=== PATIENT | female | born 1995 | race Caucasian/White ===

== ENCOUNTER 2016-09-13 09:24 | Emergency (ER) | payer BC ==
[2016-09-13 10:32] VITALS: BP 128/83
--- NOTE | 2016-09-13 10:51 | UC ---
Throat Pain/Nasal Bereket HPI - HPI Summary HPI Summary: Has continued and worsening sinus pain, right ear ache, cough, body aches---rx with amoxicillin without relief---has not used any decongestants - History of Current Complaint Chief Complaint: UCGeneralIllness Stated Complaint: COUGH Time Seen by Provider: 09/13/16 10:45 Hx Obtained From: Patient Hx Last Menstrual Period: 08/23/16 ?: No Onset/Duration: Gradual Onset, Lasting Days - >7 days, Worse Since - daily Severity: Moderate Cough: Nonproductive Associated Signs & Symptoms: Positive: Sinus Discomfort, Nasal Discharge - Allergies/Home Medications Allergies/Adverse Reactions: Allergies Allergy/AdvReac Type Severity Reaction Status Date / Time NSAIDs Allergy Severe LIP Verified 11/16/15 18:56 SWELLING Home Medications: Home Medications metFORMIN* [Glucophage 500 MG TAB *] 09/13/16 [History] PMH/Surg Hx/FS Hx/Imm Hx Previously Healthy: No - pcos Endocrine History Of: Denies: Diabetes, Thyroid Disease Cardiovascular History Of: Denies: Cardiac Disorders, Hypertension Respiratory History Of: Reports: Asthma - albuterol mdi when needed Denies: COPD GI/ History Of: Denies: Ulcer - Surgical History Surgical History: None Surgery Procedure, Year, and Place: T&A - Family History Known Family History: Positive: None - Social History Occupation: Employed Full-time Lives: With Family Alcohol Use: None Substance Use Type: None Smoking Status (MU): Light Every Day Tobacco Smoker Type: Cigarettes Amount Used/How Often: <1/2 PPD Length of Time of Smoking/Using Tobacco: 4 years Have You Smoked in the Last Year: Yes Household Exposure Type: Cigarettes Review of Systems Constitutional: Negative Skin: Negative Eyes: Negative ENT: Ear Ache, Nasal Discharge Respiratory: Cough Cardiovascular: Negative Gastrointestinal: Negative Genitourinary: Negative Motor: Negative Neurovascular: Negative Musculoskeletal: Arthralgia, Myalgia Neurological: Negative Psychological: Negative All Other Systems Reviewed And Are Negative: Yes Physical Exam Triage Information Reviewed: Yes Appearance: Well-Appearing, No Pain Distress, Well-Nourished Vital Signs: Initial Vital Signs Temp 98.0 F 09/13/16 10:27 Pulse 108 09/13/16 10:27 Resp 18 09/13/16 10:27 BP 128/83 09/13/16 10:27 Pulse Ox 98 09/13/16 10:27 Vital Signs Reviewed: Yes Eye Exam: Normal Eyes: Positive: Conjunctiva Inflamed ENT Exam: Normal ENT: Positive: Normal ENT inspection, Hearing grossly normal, Pharynx normal, Nasal congestion, Nasal drainage, TMs normal. Negative: Tonsillar swelling, Tonsillar exudate, Trismus, Muffled/hoarse voice Dental Exam: Normal Neck exam: Normal Neck: Positive: Supple, Nontender, No Lymphadenopathy Respiratory Exam: Normal Respiratory: Positive: Chest non-tender, Lungs clear, Normal breath sounds, No respiratory distress, No accessory muscle use Cardiovascular Exam: Other Cardiovascular: Positive: No Murmur, Pulses Normal, Brisk Capillary Refill, Tachycardia Musculoskeletal Exam: Normal Musculoskeletal: Positive: Strength Intact, ROM Intact, No Edema Neurological Exam: Normal Neurological: Positive: Alert, Muscle Tone Normal Psychological Exam: Normal Skin Exam: Normal Throat Pain/Nasal Course/Dx - Course Assessment/Plan: Augmentin, flonase and zyrtec -d increase fluids, follow with pcp - Differential Dx/Diagnosis Differential Diagnosis/HQI/PQRI: Otitis Media, Pharyngitis, Sinusitis, URI Provider Diagnoses: Acute rhinosinusitis Discharge - Discharge Plan Condition: Stable Disposition: HOME Prescriptions: Amoxicillin/Clavulanate TAB* [Augmentin TAB 875*] 875 mg PO BID #20 tab Cetirizine-Pseudoephedrine [Zyrtec-D Allergy/Congesti] 1 tab PO BID PRN #30 tab PRN Reason: nasal congestion Fluticasone NASAL SPRAY 50MCG* [Flonase NASAL SPRAY 50MCG*] 2 spray BOTH NARES DAILY #1 btl Patient Education Materials: Rhinosinusitis (ED), Cold Symptoms (ED) Forms: *Work Release Referrals: [facility] [place] [facility]FERR[facility] [Outside] - If Needed
== END 2016-09-13 11:07 | disposition home or self-care (01) ==
LOC: UCEAST 09:24
DX: J01.90 Acute sinusitis, unspecified (principal); F17.210 Nicotine dependence, cigarettes, uncomplicated; J45.909 Unspecified asthma, uncomplicated; Z88.6 Allergy status to analgesic agent
CPT/HCPCS: 99212; G0463

== ENCOUNTER → 2016-10-02 10:48 | Emergency (ER) | payer SELFPAY ==
[~2016-10-02 10:48] MED LIST: Acetaminophen TAB* 325 MG PO ONE
[2016-10-02 10:57] VITALS: BP 149/92
[2016-10-02 11:39] LABS: Manual Entry Verification MR; UR Preg Internal Control QC Line Present
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
== END | disposition home or self-care (01) ==
LOC: ED 10:48
DX: M79.1 Myalgia (principal); F17.210 Nicotine dependence, cigarettes, uncomplicated; M54.2 Cervicalgia
CPT/HCPCS: 72125; 81025; 99282; A9270-GY

== ENCOUNTER → 2016-10-04 16:42 | Emergency (ER) | payer SELFPAY ==
[~2016-10-04 16:42] MED LIST changes: -Acetaminophen TAB* 325 MG PO ONE; +Dexamethasone IV* 4 MG/ML 1 ML (4 MG) IM ONE; +Lidocaine PATCH 5%* 1 PATCH ONE; +Lidocaine PATCH 5%* 1 PATCH TRANSDERM SCH; +Lidocaine Patch REMOVE* 1 NOTE MISC SCH
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
[2016-10-04 19:52] VITALS: BP 123/90
== END | disposition home or self-care (01) ==
LOC: ED 16:42
DX: M54.2 Cervicalgia (principal); R20.0 Anesthesia of skin; F17.210 Nicotine dependence, cigarettes, uncomplicated; J45.909 Unspecified asthma, uncomplicated
CPT/HCPCS: 96372; 99282; A9270-GY; J1100

== ENCOUNTER 2016-11-27 21:39 | Emergency (ER) | payer BC, OTHER ==
[2016-11-27] MEDS ORDERED: Aspirin Low Dose CHEW TAB* 81 MG PO ONE (23:51)
[2016-11-28 00:59] LABS: Hematocrit 40 % (35-47); Hemoglobin 13.5 g/dl (12.0-16.0); Mean Corpuscular HGB Conc 34 g/dl (31-36); Mean Corpuscular Hemoglobin 32 pg (27-31); Mean Corpuscular Volume 93 fL (80-97); Mean Platelet Volume 8 um3 (7.4-10.4); Red Blood Count 4.28 10^6/ul (4.0-5.4); Red Cell Distribution Width 13 % (10.5-15); White Blood Count 13.7 10^3/ul (3.5-10.8)
[2016-11-28 01:29] LABS: BUN/Creatinine Ratio 15.3 (8-20); Calcium 9.5 mg/dL (8.6-10.3); EGFR African American 165.5 (>60); EGFR Non-African American 128.7 (>60); Globulin 2.9 g/dL (2-4); Potassium 3.6 mmol/L (3.5-5.0); Total Bilirubin 0.3 mg/dL (0.2-1.0); Total Protein 6.9 g/dL (6.4-8.9)
[2016-11-28] MEDS ORDERED: Pantoprazole TAB (NF) 40 MG TAB PO ONE (01:59)
[2016-11-28] MEDS ORDERED: Omeprazole CAP* 20 MG ONE (02:07)
--- NOTE | 2016-11-28 04:21 | ED ---
Real Howard Rebecca, scribed for Charles Renteria on 11/27/16 at 2321 . HPI Chest Pain - HPI Summary HPI Summary: Pt is a 20 y/o F who presents to ED c/o CP for 2 days. Pain is in the midsternal region without radiation and is characterized as pressure, like "someone is pushing." Sx aggravated by movement, alleviated by nothing. Denies SOB. Is not on oral contraceptives. Takes Metformin to treat PCOS and 1 week ago her dose was doubled from 500 mg to 1000 mg. SHx current smoker. - History of Current Complaint Chief Complaint: EDChestPainROMI Time Seen by Provider: 11/27/16 23:14 Hx Obtained From: Patient Onset/Duration: Started Days Ago - 2 days ago, Still Present Current Severity: None Pain Intensity: 0 Pain Scale Used: 0-10 Numeric Chest Pain Location: Mid Sternal Chest Pain Radiates: No Character: Pressure/Squeezing Aggravating Factor(s): Movement Alleviating Factor(s): Nothing Associated Signs and Symptoms: Positive: Negative. Negative: Shortness of Breath - Allergy/Home Medications Allergies/Adverse Reactions: Allergies Allergy/AdvReac Type Severity Reaction Status Date / Time NSAIDs Allergy Severe LIP Verified 11/16/15 18:56 SWELLING PMH/Surg Hx/FS Hx/Imm Hx Endocrine/Hematology History: Denies: Hx Diabetes, Hx Thyroid Disease Cardiovascular History: Denies: Hx Hypertension Respiratory History: Reports: Hx Asthma - albuterol mdi when needed Denies: Hx Chronic Obstructive Pulmonary Disease (COPD) GI History: Denies: Hx Ulcer History: Reports: Other Problems/Disorders - PCOS - Surgical History Surgery Procedure, Year, and Place: T&A Infectious Disease History: Denies: Hx Clostridium Difficile, Hx Hepatitis, Hx Human Immunodeficiency Virus (HIV), Hx of Known/Suspected MRSA, Hx Shingles, Hx Tuberculosis, Hx Known/ Suspected VRE, Hx Known/Suspected VRSA, History Other Infectious Disease, Traveled Outside the [place] in Last 30 Days - Family History Known Family History: Positive: Diabetes, Other - CA - Social History Alcohol Use: None Substance Use Type: Reports: None Smoking Status (MU): Light Every Day Tobacco Smoker Type: Cigarettes Amount Used/How Often: <1/2 PPD Length of Time of Smoking/Using Tobacco: 4 years Have You Smoked in the Last Year: Yes Review of Systems Positive: Chest Pain Negative: Shortness Of Breath All Other Systems Reviewed And Are Negative: Yes Physical Exam Triage Information Reviewed: Yes Vital Signs On Initial Exam: Initial Vitals Temp Pulse Resp BP Pulse Ox 98 F 91 16 136/76 99 11/27/16 21:43 11/27/16 21:43 11/27/16 21:43 11/27/16 21:43 11/27/16 21:43 Vital Signs Reviewed: Yes Appearance: Positive: Well-Appearing, No Pain Distress Skin: Positive: Warm, Skin Color Reflects Adequate Perfusion, Dry Head/Face: Positive: Normal Head/Face Inspection Eyes: Positive: EOMI, WHITLEY ENT: Positive: Normal ENT inspection Neck: Positive: Supple, Nontender Respiratory/Lung Sounds: Positive: Clear to Auscultation, Breath Sounds Present Cardiovascular: Positive: RRR, Pulses are Symmetrical in both Upper and Lower Extremities Abdomen Description: Positive: Nontender, Soft Bowel Sounds: Positive: Present Musculoskeletal: Positive: Normal, Strength/ROM Intact Neurological: Positive: Normal, Sensory/Motor Intact, Alert, Oriented to Person Place, Time Diagnostics - Vital Signs Vital Signs Temp Pulse Resp BP Pulse Ox 11/27/16 21:43 98 F 91 16 136/76 99 - Laboratory Result Diagrams: 11/28/16 00:50 11/28/16 00:50 Lab Statement: Any lab studies that have been ordered have been reviewed, and results considered in the medical decision making process. - Radiology CXR Xray Interpretation: No Acute Changes Radiology Interpretation Completed By: ED Physician - Ultrasound No standard instances Ultrasound Interpretation: No Acute Changes - The gallbladder is not well distended. No definite stones or sludge visualized. The gallbladder wall is normal in thickness measuring 2 mm. No pericholecystic fluid. Negative sonographic Pérez;s sign repoted. The common bile duct is within normla limits measuring 2.4 mm. The liver, right kidney and visualized portions of the abdominal aorta and IVC are unremarkable. Visualized portions of the pancreas appear grossly normal with portions obscured by overlying bowel gas. Ultrasound Interpretation Completed By: Radiologist - EKG 0114 Cardiac Rate: NL - 91 bpm EKG Rhythm: Sinus Rhythm EKG Interpretation: No acute changes Re-Evaluation - Re-Evaluation First Eval Re-Evaluation Time: 02:32 Change: Unchanged Comment: Explained that labs are not back yet. She expressed that she would like to leave. Chest Pain Course/Dx - Course Assessment/Plan: Pt is a 20 y/o F who presents to ED c/o midsternal CP characterized as pressure for 2 days. Sx aggravated by movement. Denies SOB. Is not on oral contraceptives. Takes Metformin to treat PCOS and 1 week ago her dose was doubled from 500 mg to 1000 mg. SHx current smoker. CXR, Abd US and EKG reveal no acute findings. Troponin of 0.00, D-Dimer<200, lipase of 28. Pt will be D/C to home with Dx of abdominal pain, nonspecific. She understands and agrees. Patient medications reviewed this visit. - Diagnoses Provider Diagnoses: Pain, abdominal, nonspecific Discharge - Discharge Plan Condition: Stable Disposition: HOME Patient Education Materials: Abdominal Pain (ED) Referrals: Jori France MD [Primary Care Provider] - 3 Days The documentation as recorded by the Real rivas Rebecca accurately reflects the service I personally performed and the decisions made by , Charles Renteria.
[2016-11-28 06:02] VITALS: BP 120/69
--- NOTE | 2016-11-28 08:04 | RAD ---
INDICATION: Chest pain COMPARISON: None TECHNIQUE: PA and lateral dual-energy views were obtained. FINDINGS: Bones/Soft Tissues: There are no acute bony findings. There is a minor scoliosis Cardiomediastinal: The cardiomediastinal silhouette is normal. Lungs: There are no infiltrates. Pleura: There are no pleural effusions. Other: None IMPRESSION: No active disease.
--- NOTE | 2016-11-28 08:33 | RAD ---
INDICATION: Cholecystitis. Right upper quadrant pain. COMPARISON: None TECHNIQUE: Longitudinal and transverse scans of the right upper quadrant were obtained. Doppler interrogation of the hepatic and portal venous system was performed. FINDINGS: Liver: The liver is normal in size and echogenicity. There are no focal masses. The liver measures 15.8 cm in cephalocaudal dimension. Vessels: There is normal hepatic and portal venous flow. Bile ducts: There is no evidence of intrahepatic or extrahepatic ductal dilatation. The common duct measures 0.2 cm. Gallbladder: The gallbladder is partially contracted. There is no evidence of cholelithiasis, thickening of the gallbladder wall, or pericholecystic fluid. Pancreas: The visualized pancreas is very limited due to bowel gas. Right kidney: The right kidney is normal in size and echogenicity. There are no masses or calculi. There is no evidence of hydronephrosis. The right kidney measures 11.2 x 4.1 x 5.3 cm. IVC and aorta: The aorta and superior vena cava appear normal. Fluid: There is no ascites. Other: None. IMPRESSION: PARTIALLY CONTRACTED GALLBLADDER. NO EVIDENCE OF CHOLELITHIASIS. NONVISUALIZATION OF THE PANCREAS.
== END 2016-11-28 02:40 | disposition home or self-care (01) ==
LOC: ED 21:39
DX: R07.9 Chest pain, unspecified (principal); R10.9 Unspecified abdominal pain; F17.210 Nicotine dependence, cigarettes, uncomplicated
CPT/HCPCS: 36415; 71020; 76705; 80053; 83690; 84484; 85025; 85379; 85610; 93005; 99282; A9270-GY

== ENCOUNTER 2017-10-01 20:13 | Emergency (ER) | payer BC, MEDICAID ==
--- NOTE | 2017-10-01 21:14 | RAD ---
INDICATION: 1 month RIGHT calf pain. 36 weeks . COMPARISON: No relevant prior exams available on the [facility] PACS for comparison. TECHNIQUE: Ruiz scale, color Doppler, and spectral analysis of the deep veins of the RIGHT lower extremity. Vessel compression, phasicity, and augmentation assessed. REPORT: The RIGHT common femoral, great saphenous, profunda femoral, partially duplicated femoral, popliteal, peroneal, and posterior tibial veins are patent. Patency of the LEFT common femoral vein documented. IMPRESSION: No evidence for RIGHT lower extremity deep venous thrombosis.
--- NOTE | 2017-10-01 21:25 | ED ---
Lower Extremity - HPI Summary HPI Summary: 21 female presents to ER with complaints of right calf pain that has been ongoing for the past 2 weeks, worsening over the past 2 days. Patient is 36 weeks concern for DVT. Denies any redness or obvious swelling. No shortness of breath or chest pain. No other complaints or concerns. Denies history of blood clot. Does not use cigarettes, no hormone use, no: Bedrest, no recent travel, no recent trauma or injury or recent surgery. No past medical history. Has not had any medication. - History of Current Complaint Chief Complaint: EDExtremityLower Stated Complaint: LEG PAIN Hx Obtained From: Patient Hx Last Menstrual Period: 08/23/16 Mechanism Of Injury: Other - None Onset/Duration: Still Present Severity Initially: Mild Severity Currently: Mild Pain Intensity: 3 Pain Scale Used: 0-10 Numeric Timing: Constant - Worse at times Location: Is Discrete @ - Right posterior mid calf Character Of Pain: Dull, Aching Associated Signs And Symptoms: Positive: Negative Aggravating Factor(s): Ambulation, Movement Alleviating Factor(s): Rest Able to Bear Weight: Yes - Allergies/Home Medications Allergies/Adverse Reactions: Allergies Allergy/AdvReac Type Severity Reaction Status Date / Time NSAIDS (Non-Steroidal Allergy Swelling Verified 07/15/17 12:02 Anti-Inflamma Of Face,Lips,& Throat Home Medications: Home Medications Pnv,Calcium 72/Iron/Folic Acid [Preplus Ca-Fe 27 mg-FA 1 mg Tb] 1 tab PO DAILY 10/01/17 [History Confirmed 10/01/17] PMH/Surg Hx/FS Hx/Imm Hx Endocrine/Hematology History: Denies: Hx Diabetes, Hx Thyroid Disease Cardiovascular History: Denies: Hx Hypertension Respiratory History: Reports: Hx Asthma - albuterol mdi when needed Denies: Hx Chronic Obstructive Pulmonary Disease (COPD) GI History: Denies: Hx Ulcer History: Reports: Other Problems/Disorders - PCOS - Surgical History Surgery Procedure, Year, and Place: T&A - Immunization History Immunizations Up to Date: Yes Infectious Disease History: No Infectious Disease History: Denies: Hx Clostridium Difficile, Hx Hepatitis, Hx Human Immunodeficiency Virus (HIV), Hx of Known/Suspected MRSA, Hx Shingles, Hx Tuberculosis, Hx Known/ Suspected VRE, Hx Known/Suspected VRSA, History Other Infectious Disease, Traveled Outside the [place] in Last 30 Days - Family History Known Family History: Positive: None, Diabetes, Other - CA - Social History Alcohol Use: None Substance Use Type: Reports: None Hx Tobacco Use: Yes Smoking Status (MU): Never Smoked Tobacco Type: Cigarettes Amount Used/How Often: <1/2 PPD Length of Time of Smoking/Using Tobacco: 4 years Have You Smoked in the Last Year: Yes Review of Systems Constitutional: Negative Cardiovascular: Negative Respiratory: Negative Positive: Arthralgia, Myalgia Skin: Negative Neurological: Negative All Other Systems Reviewed And Are Negative: Yes Physical Exam Triage Information Reviewed: Yes Vital Signs On Initial Exam: Initial Vitals Temp Pulse Resp BP Pulse Ox 98.4 F 98 16 177/99 99 10/01/17 20:16 10/01/17 20:16 10/01/17 20:16 10/01/17 20:16 10/01/17 20:16 BP improved 140/89 Vital Signs Reviewed: Yes Appearance: Positive: Well-Appearing, No Pain Distress, Well-Nourished Skin: Positive: Warm, Skin Color Reflects Adequate Perfusion, Dry. Negative: Cold, Numb, Cyanosis @, Pale, Erythema @ Head/Face: Positive: Normal Head/Face Inspection Eyes: Positive: WHITLEY ENT: Positive: Hearing grossly normal Neck: Positive: Supple, Nontender, No Lymphadenopathy Respiratory/Lung Sounds: Positive: Clear to Auscultation, Breath Sounds Present. Negative: Rales, Rhonchi, Wheezes Cardiovascular: Positive: Normal, RRR, Pulses are Symmetrical in both Upper and Lower Extremities. Negative: Murmur, Rub Abdomen Description: Positive: Nontender, Soft Bowel Sounds: Positive: Present Musculoskeletal: Positive: Normal, Strength/ROM Intact, Other - No erythema or swelling. Negative: Limited @, Interruption @, Abnormal @, Pain @, Therese Sign Left, Therese Sign Right, Edema Left, Edema Right Neurological: Positive: Normal, Sensory/Motor Intact, Alert, Oriented to Person Place, Time, CN Intact II-III, Reflexes Intact, NV Bundle Intact Distally, Normal Gait Diagnostics - Vital Signs Vital Signs Temp Pulse Resp BP Pulse Ox 10/01/17 21:02 101 13 145/89 97 10/01/17 21:00 105 19 97 10/01/17 20:58 110 13 168/101 98 10/01/17 20:32 114 163/115 99 10/01/17 20:16 98.4 F 98 16 177/99 99 - Laboratory Lab Statement: Any lab studies that have been ordered have been reviewed, and results considered in the medical decision making process. - Ultrasound No standard instances Ultrasound Interpretation: No Acute Changes - No evidence for RIGHT lower extremity deep venous thrombosis. Ultrasound Interpretation Completed By: Radiologist Lower Extremity Course/Dx - Course Course Of Treatment: Normal physical exam and vitals. Ultrasound obtained and negative. Appears to be a muscular strain probably due to excessive weight gain from . Rest, heat compress, Tylenol and massage. Aware worsening signs and symptoms watch out for. No risk factors to concern for other etiology at this time. Follow-up with PCP. Patient's elevated pressure on arrival due to whitecoat hypertension. Patient has this during a revisit. Monitor his pressures at home and are normal. Evaluated for preeclampsia 3 times this week, with negative findings. Therefore not of concern today. Her pressure did improve throughout visit and at discharge - Diagnoses Differential Diagnosis/HQI/PQRI: Positive: Strain, Other - Right calf pain Provider Diagnoses: Right calf pain, Muscle strain Discharge - Sign-Out/Discharge Documenting (check all that apply): Discharge/Admit/Transfer - Discharge Plan Condition: Good Disposition: HOME Patient Education Materials: Muscle Strain (ED) Referrals: Jori France MD [Primary Care Provider] - Additional Instructions: rest, apply heating pad, icey/hot, tylenol gently stretch any new or worsening symptoms (SOB, trouble breathing, chest, redness, swelling , increased pain) please return to ED follow up with PCP. - Billing Disposition and Condition Condition: GOOD Disposition: HOME
[2017-10-01 21:58] VITALS: BP 140/90
== END 2017-10-01 22:06 | disposition home or self-care (01) ==
LOC: ED 20:13
DX: O26.893 Other specified pregnancy related conditions, third trimester (principal); M79.661 Pain in right lower leg; S86.811A Strain of other muscle(s) and tendon(s) at lower leg level, right leg, initial encounter; X58.XXXA Exposure to other specified factors, initial encounter; Y92.9 Unspecified place or not applicable; O99.333 Smoking (tobacco) complicating pregnancy, third trimester; F17.210 Nicotine dependence, cigarettes, uncomplicated; Z88.6 Allergy status to analgesic agent
CPT/HCPCS: 99283

== ENCOUNTER 2017-10-11 17:54 | Inpatient (IN) | payer BC, MEDICAID ==
[2017-10-11] MEDS ORDERED: Nalbuphine* 20 MG/ML 1 ML VIAL IV ONE (19:01)
[2017-10-11] MEDS ORDERED: Dinoprostone* 10 MG VAG.SUPP VAGINAL ONE (19:01)
[2017-10-11] MEDS ORDERED: Promethazine INJ(RESTRICTED)* 25 MG/ML 1 ML VIAL IV ONE (19:01)
--- NOTE | 2017-10-11 19:10 | HP ---
General Information - General Information Maternal Age: 21 Grav: 1 Para: 0 SAB: 0 IEA: 0 Estimated Due Date: 10/26/17 Determined By: LMP Gestational Age in Weeks and Days: 37 Weeks and 6 Days Maternal Blood Type and Rh: B Positive - Results this Serology/RPR Result: Non-Reactive Rubella Result: Immune HBsAg Result: Negative HIV Result: Negative GBS Culture Result: Negative Past Medical History Delivery History: See Records Pertinent Past Medical History: Non-Contributory Pertinent Past Surgical History: None Pertinent Family History: See Records Family History Comment: HTN, Stroke, CVD, blood clots, PCOS - Antepartal Records Antepartal Records: Reviewed, Complicated by: - mild preeclampsia, low lying placenta (resolved 06/20/2017), bilateral choroid plexus cysts (resolved ), BMI 32.5 Review of Systems Constitutional: Comfortable CV Complaint: No Respiratory: Shortness of Breath: No Gastrointestinal: No Nausea/Vomiting Genitourinary: No Dysuria, No Bleeding, No Leaking Fluid Musculoskeletal: Contractions - irregular Neurological: No Visual Changes - mild right sided headache Movement: Normal Exam Allergies/Adverse Reactions: Allergies NSAIDS (Non-Steroidal Anti-Inflamma Allergy (Verified 10/11/17 18:22) Swelling Of Face,Lips,& Throat T:98.3, P:113, R:18, BP: 159/94, O2:100 - Measurements Height: 5 ft 4 in Weight: 191 lb Weight in lbs: 191 Body Mass Index (BMI): 32.8 Pre- Weight: 180 lb Weight Gained This : 11 lbs and 0 ozs - Exam Abdomen: No Upper Quadrant Pain Breast: Breast Exam Deferred CVA: No CVA Tenderness Extremities: No Edema Heart: Normal Rhythm/Heart Sounds HEENT: No Significant Findings Lungs: Clear Bilaterally Rectal: Rectal Exam Deferred Thyroid: No Thyromegaly - Abdominal Exam Abdomen Exam: Non-Tender - Ultrasound/Biophysical Profile Ultrasound Status: Not Done Targeted Exam Findings Cervical Exam: Fingertip Effacement: Thick Station: -2 Presenting Part: Vertex Membrane Status: Intact Bleeding/Discharge: None EFM Findings - External Monitor Findings Baseline Heart Rate: 135 External Monitor Findings: Accelerations Present, No Pattern of Variable or Late Decelerations, Variability Moderate, Baseline Stable Contractions: Irregular, Mild Assessment/Plan - Reason for Visit Reason for Visit: mild preeclampsia/ induction of labor - Obstetrical Risk Factors Obstetrical Risk Factors: Obesity, Proteinuria, PreEclampsia - Plan Plan: Induction, Cervical Ripening Plan Comment: Dr. Sotelo aware of plan and agrees with plan of care - Date/Time of Admission Date of Admission: 10/11/17 Time of Admission: 18:00
[2017-10-11 20:35] LABS: ABS Basophils 0 10^3/ul (0-0.2); ABS Eosinophils 0.2 10^3/ul (0-0.6); ABS Lymphocytes 3.3 10^3/ul (1.0-4.8); ABS Monocytes 1.4 10^3/ul (0-0.8); ABS Neutrophils 11.5 10^3/ul (1.5-7.7); ABS Nucleated RBC 0 10^3/ul; Hematocrit 34 % (35-47); Hemoglobin 11.8 g/dl (12.0-16.0); Lymphocyte % 19.9 % (25-47); Mean Corpuscular HGB Conc 35 g/dl (31-36); Mean Corpuscular Hemoglobin 33 pg (27-31); Mean Corpuscular Volume 93 fL (80-97); Mean Platelet Volume 8.7 um3 (7.4-10.4); Nucleated Red Blood Cells % 0.1; Platelet Count 344 10^3/ul (150-450); Red Blood Count 3.62 10^6/ul (4.0-5.4); Red Cell Distribution Width 13 % (10.5-15); White Blood Count 16.4 10^3/ul (3.5-10.8)
[2017-10-11 20:56] LABS: EGFR Non-African American 178.8 (>60)
[2017-10-11 22:05] LABS: Urine Appearance Cloudy; Urine Blood Negative (Negative); Urine Color Yellow; Urine Ketones Trace (Negative); Urine Protein 1+(30 mg/dL) (Negative); Urine Specific Gravity 1.032 (1.010-1.030); Urine Urobilinogen Negative (Negative)
[2017-10-12] MEDS ORDERED: Misoprostol TAB* 100 MCG PO ONE (10:40)
[2017-10-12] MEDS ORDERED: Misoprostol TAB* 100 MCG ONE (10:55)
--- NOTE | 2017-10-12 10:56 | PN ---
Progress Note - Progress Note Date of Service: 10/12/17 SOAP: Subjective: [Pt reports cramping overnight but slept and rested well with Nubain and phenergan. Pt denies regular contractions, reports +FM, denies LOF, or vaginal bleeding. Pt c/o swelling of legs this morning. No other concerns. Reviewed plan and options and pt consents to continue with Misoprostol for further cervical ripening.] Objective: [ZULMA: 134/90, P:87, R:16, T:98.1 cervix: FT/60/-2 posterior FHT: Baseline 140bpm, mod variability, +accels, -decels] Assessment: [21 y.o. 38weeks EGA, mild preeclampsia, induction of labor] Plan: [1) Oral misoprostol 2) Continuous monitoring 3) Encourage position changes and ambulation 4) Monitor intake and output 5) Reviewed risks versus benefits and questions answered to patient satisfaction 6) Reevaluation PRN]
--- NOTE | 2017-10-12 18:24 | PN ---
Progress Note - Progress Note Date of Service: 10/12/17 SOAP: Subjective: [Pt reports mild contractions and continued cramping. Pt denies LOF, reports + bloody show, -vaginal bleeding, +FM. Reviewed options and pt elects to continue with Coombs balloon for continued cervical ripening.] Objective: [ FHT: 130 bpm, moderate variability, + accels, -decels cervix 1/60/-2 midline] Assessment: [21 y.o. , mild preeclampsia, Induction of labor] Plan: [1) Reviewed mgmt options and R/B 2) Coombs balloon overnight for cervical ripening 3) Continuous monitoring, monitor intake and output, therapeutic rest overnight 4) Reevaluate PRN 5) Dr. Sotelo aware of plan and agrees 6) Questions answered to pt satisfaction]
[2017-10-12] MEDS ORDERED: Nalbuphine* 20 MG/ML 1 ML VIAL IV PRN (22:19)
[2017-10-12] MEDS ORDERED: Promethazine INJ(RESTRICTED)* 25 MG/ML 1 ML VIAL IV PRN (22:19)
[2017-10-12] MEDS ORDERED: Docusate CAP* 100 MG PO PRN (22:40)
--- NOTE | 2017-10-13 12:43 | PN ---
Progress Note - Progress Note Date of Service: 18 - 9AM SOAP: Subjective: [Pt reports cramping and pressure overnight. Pt states she rested well, reports + bloody show, denies LOF, + FM. Reviewed option and pt elects to continue with AROM and then pitocin if ctx do not start. Pt denies CARR, vision changes, epigastric pain or facial edema] Objective: [BP: 153/94, P:101, T 98.3, Intake 2230ml, Output 1825ml Cervix:360/-1 AROM particulate meconium NST: baseline: 135bpm, + accels, -decels, moderate variability] Assessment: [21 y.o. at 38w1d EGA, mild preeclampsia, IOL] Plan: [1) Ambulation 2) Reviewed induction risks versus benefits 3) Pitocin augmentation if ctx fail to start after a few hours. 4) Questions answered to pt satisfaction 5) Reviewed with Dr. Maya who agrees with plan]
[2017-10-13] MEDS ORDERED: Lidocaine 1% MPF* 2 ML VIAL ONE (12:44)
[2017-10-13] MEDS ORDERED: Oxytocin in LR* 20 UNITS/1,000 ML BAG IVPB ONE (12:47)
--- NOTE | 2017-10-13 12:50 | PN ---
Progress Note - Progress Note Date of Service: 10/13/17 - 12:45PM SOAP: Subjective: [Pt reports cramps and pressure but no contractions. Pt agrees to start Pitocin and requests pain mgmt as needed but not yet.] Objective: [BP: 146/90 p:101, T:98.3] FHT: baseline 135, mod variability, +accels, -decels irregular ctx on monitor Assessment: [21 yo 38w1d EGA mild preeclampsia, IOL] Plan: [1) Pitocin 2) Encourage ambulation 3) Pain mgmt PRN 4) reevaluate PRN 5) Continuous monitoring 6) Dr boyle aware]
[2017-10-13] MEDS ORDERED: Oxytocin in LR* 20 UNITS/1,000 ML BAG IVPB SCH (15:00)
[2017-10-13] MEDS ORDERED: OBEPIDURAL* 250 ML EPIDURAL ONE (16:32)
[2017-10-13] MEDS ORDERED: EPHEDrine (Pressors)* 50 MG/ML VIAL IV PUSH PRN ×2 (18:23)
[2017-10-13] MEDS ORDERED: Phenylephrine IV* 40 MCG/ML 10 ML SYRINGE IV PUSH PRN ×2 (18:23)
[2017-10-13] MEDS ORDERED: Sodium Citrate/Citric Acid* 15 ML UDC PO PRN (18:23)
[2017-10-13] MEDS ORDERED: Famotidine TAB* 20 MG PO PRN (18:23)
[2017-10-13] MEDS ORDERED: OBEPIDURAL* 250 ML EPIDURAL SCH (19:00)
[2017-10-14] MEDS ORDERED: Witch Hazel PAD* JAR TOPICAL PRN (02:17)
[2017-10-14] MEDS ORDERED: Glycerin ADULT SUPP PR PRN (02:17)
[2017-10-14] MEDS ORDERED: Dibucaine 1% 28.35 GM TUBE PR PRN (02:17)
[2017-10-14] MEDS ORDERED: Oxytocin in LR* 20 UNITS/1,000 ML BAG IVPB SCH (03:00)
[2017-10-14] MEDS ORDERED: Simethicone TAB* 80 MG TAB.CHEW PO SCH (08:30)
[2017-10-14] MEDS: Docusate CAP* 100 MG PO SCH ×3 (09:35→20:46)
[2017-10-14] MEDS: Acetaminophen TAB* 325 MG PO PRN ×3 (09:35→17:42)
[2017-10-14] MEDS ORDERED: Labetalol TAB* 100 MG ONE (20:24)
[2017-10-14] MEDS: Labetalol TAB* 100 MG PO SCH (20:46)
[2017-10-14 20:52] LABS: ABS Basophils 0.2 10^3/ul (0-0.2); ABS Eosinophils 0.3 10^3/ul (0-0.6); ABS Lymphocytes 3.7 10^3/ul (1.0-4.8); ABS Monocytes 1.9 10^3/ul (0-0.8); ABS Neutrophils 13.8 10^3/ul (1.5-7.7); ABS Nucleated RBC 0 10^3/ul; Eosinophil % 1.4 % (0-6); Hematocrit 29 % (35-47); Hemoglobin 10.2 g/dl (12.0-16.0); Lymphocyte % 18.5 % (25-47); Mean Corpuscular HGB Conc 35 g/dl (31-36); Mean Corpuscular Hemoglobin 33 pg (27-31); Mean Corpuscular Volume 94 fL (80-97); Mean Platelet Volume 8.7 um3 (7.4-10.4); Nucleated Red Blood Cells % 0; Platelet Count 280 10^3/ul (150-450); Red Cell Distribution Width 14 % (10.5-15); White Blood Count 19.8 10^3/ul (3.5-10.8)
[2017-10-14 21:19] LABS: EGFR Non-African American 178.8 (>60)
[2017-10-15] MEDS: Acetaminophen TAB* 325 MG PO PRN ×4 (01:54→21:02)
[2017-10-15 06:33] LABS: ABS Basophils 0 10^3/ul (0-0.2); ABS Eosinophils 0.4 10^3/ul (0-0.6); ABS Lymphocytes 3.3 10^3/ul (1.0-4.8); ABS Monocytes 1.3 10^3/ul (0-0.8); ABS Neutrophils 10.5 10^3/ul (1.5-7.7); ABS Nucleated RBC 0 10^3/ul; Eosinophil % 2.4 % (0-6); Hematocrit 28 % (35-47); Lymphocyte % 21.2 % (25-47); Mean Corpuscular HGB Conc 36 g/dl (31-36); Mean Corpuscular Hemoglobin 33 pg (27-31); Mean Corpuscular Volume 93 fL (80-97); Mean Platelet Volume 8.6 um3 (7.4-10.4); Nucleated Red Blood Cells % 0.1; Platelet Count 267 10^3/ul (150-450); Red Blood Count 2.99 10^6/ul (4.0-5.4); Red Cell Distribution Width 13 % (10.5-15); White Blood Count 15.4 10^3/ul (3.5-10.8)
[2017-10-15] MEDS: Labetalol TAB* 100 MG PO SCH ×2 (10:37→21:00)
[2017-10-15] MEDS: Ferrous Gluconate TAB* 324 MG TAB PO SCH ×2 (10:43→21:00)
[2017-10-15] MEDS: Docusate CAP* 100 MG PO SCH ×3 (10:44→22:22)
[2017-10-16 04:07] VITALS: BP 159/83
[2017-10-16] MEDS: Acetaminophen TAB* 325 MG PO PRN (06:00)
[2017-10-16] MEDS: Docusate CAP* 100 MG PO SCH (08:46)
[2017-10-16] MEDS: Ferrous Gluconate TAB* 324 MG TAB PO SCH (08:46)
== END 2017-10-16 09:56 | disposition home or self-care (01) | DRG 560 ==
LOC: MCHOBOUT 17:54 → MCHOB 17:59
PROVIDERS: ADMIT Midwife; ATTEND Midwife
PROC: 0U7C7ZZ Dilation of Cervix, Via Natural or Artificial Opening (ICD-10-PCS; 2017-10-11)
PROC: 4A1HXCZ Monitoring of Products of Conception, Cardiac Rate, External Approach (ICD-10-PCS; 2017-10-11)
PROC: 10907ZC Drainage of Amniotic Fluid, Therapeutic from Products of Conception, Via Natural or Artificial Opening (ICD-10-PCS; 2017-10-11)
PROC: 10H073Z Insertion of Monitoring Electrode into Products of Conception, Via Natural or Artificial Opening (ICD-10-PCS; 2017-10-11)
PROC: 3E0P7VZ Introduction of Hormone into Female Reproductive, Via Natural or Artificial Opening (ICD-10-PCS; principal; 2017-10-13)
PROC: 10E0XZZ Delivery of Products of Conception, External Approach (ICD-10-PCS; 2017-10-14)
PROC: 0HQ9XZZ Repair Perineum Skin, External Approach (ICD-10-PCS; 2017-10-14)
DX: O14.04 Mild to moderate pre-eclampsia, complicating childbirth (principal); O77.0 Labor and delivery complicated by meconium in amniotic fluid; O69.82X0 Labor and delivery complicated by other cord entanglement, without compression, not applicable or unspecified; O34.83 Maternal care for other abnormalities of pelvic organs, third trimester; E28.2 Polycystic ovarian syndrome; O99.214 Obesity complicating childbirth; O90.81 Anemia of the puerperium; O70.0 First degree perineal laceration during delivery; Z3A.38 38 weeks gestation of pregnancy; Z37.0 Single live birth; Z68.32 Body mass index [BMI] 32.0-32.9, adult; Z88.6 Allergy status to analgesic agent
CPT/HCPCS: 36415; 80053; 81003; 81015; 85025; 86850; 86900; 86901; A9270-GY; J2300; J2550; S0191

== ENCOUNTER 2017-10-23 12:30 | Emergency (ER) | payer BC, MEDICAID ==
[2017-10-23] MEDS ORDERED: Labetalol IV* 5 MG/ML 20 ML VIAL IV PUSH ONE ×2 (13:05→13:51)
[2017-10-23 13:50] LABS: ABS Basophils 0 10^3/ul (0-0.2); ABS Eosinophils 0.1 10^3/ul (0-0.6); ABS Lymphocytes 2.3 10^3/ul (1.0-4.8); ABS Monocytes 0.7 10^3/ul (0-0.8); ABS Neutrophils 7.2 10^3/ul (1.5-7.7); ABS Nucleated RBC 0 10^3/ul; Eosinophil % 1.3 % (0-6); Hematocrit 39 % (35-47); Hemoglobin 13.8 g/dl (12.0-16.0); Mean Corpuscular HGB Conc 35 g/dl (31-36); Mean Corpuscular Hemoglobin 33 pg (27-31); Mean Corpuscular Volume 93 fL (80-97); Mean Platelet Volume 7.9 um3 (7.4-10.4); Nucleated Red Blood Cells % 0; Platelet Count 605 10^3/ul (150-450); Red Blood Count 4.21 10^6/ul (4.00-5.40); Red Cell Distribution Width 13 % (10.5-15); White Blood Count 10.4 10^3/ul (3.5-10.8)
[2017-10-23 13:59] LABS: Urine Appearance Cloudy; Urine Blood 3+ (Negative); Urine Color Yellow; Urine Ketones Negative (Negative); Urine Protein Negative (Negative); Urine Specific Gravity 1.004 (1.010-1.030); Urine Urobilinogen Negative (Negative)
[2017-10-23 14:09] LABS: EGFR Non-African American 138.2 (>60)
[2017-10-23] MEDS ORDERED: NIFEdipine ER TAB* 30 MG PO ONE (14:43)
--- NOTE | 2017-10-23 16:24 | ED ---
Juan Howard Stephanie, scribed for Ray Bran MD on 10/23/17 at 1305 . Hypertension - HPI Summary HPI Summary: The pt is a 21 y/o F presenting to the ED with c/o elevated BP at 09:30 today. Symptoms include pressure to the R side of face and head. The pt reports she had HTN/preeclampsia while and has placed on Lasix for 5 days. Her final dose of Lasix was on 10/22/17. Her BP reading this morning was 171/113. - History of Current Complaint Chief Complaint: EDHypertension Stated Complaint: HIGH BP Time Seen by Provider: 10/23/17 12:54 Hx Obtained From: Patient Hx Last Menstrual Period: 08/23/16 Onset/Duration: Started Hours Ago, Still Present Timing: Constant Aggravating Factor(s): Nothing Alleviating Factor(s): Nothing Associated Signs & Symptoms: Other: - pressure on R side of face and head - Allergies/Home Medications Allergies/Adverse Reactions: Allergies Allergy/AdvReac Type Severity Reaction Status Date / Time NSAIDS (Non-Steroidal Allergy Swelling Verified 10/23/17 12:43 Anti-Inflamma Of Face,Lips,& Throat Home Medications: Home Medications Vitamin TAB* 1 tab PO DAILY 10/23/17 [History Confirmed 10/23/17] PMH/Surg Hx/FS Hx/Imm Hx Endocrine/Hematology History: Denies: Hx Diabetes, Hx Thyroid Disease Cardiovascular History: Denies: Hx Hypertension Respiratory History: Reports: Hx Asthma - albuterol mdi when needed Denies: Hx Chronic Obstructive Pulmonary Disease (COPD) GI History: Denies: Hx Ulcer History: Reports: Other Problems/Disorders - PCOS Sensory History: Denies: Hx Legally Blind EENT History: Denies: Hx Deafness - Surgical History Surgery Procedure, Year, and Place: T&A Infectious Disease History: No Infectious Disease History: Denies: Hx Clostridium Difficile, Hx Hepatitis, Hx Human Immunodeficiency Virus (HIV), Hx of Known/Suspected MRSA, Hx Shingles, Hx Tuberculosis, Hx Known/ Suspected VRE, Hx Known/Suspected VRSA, History Other Infectious Disease, Traveled Outside the [place] in Last 30 Days - Family History Known Family History: Positive: Diabetes, Other - CA - Social History Occupation: Employed Part-time Lives: With Family Alcohol Use: None Hx Substance Use: No Substance Use Type: Reports: None Hx Tobacco Use: Yes Smoking Status (MU): Former Smoker Type: Cigarettes Amount Used/How Often: <1/2 PPD Length of Time of Smoking/Using Tobacco: 4 years Have You Smoked in the Last Year: Yes Review of Systems Positive: Other - pressure on R side of face and head. . Negative: Fever Positive: Other - elevated BP Negative: Slurred Speech All Other Systems Reviewed And Are Negative: Yes Physical Exam - Summary Physical Exam Summary: VITAL SIGNS: Reviewed. GENERAL: Patient is a well-developed and nourished FEMALE who is lying comfortable in the stretcher. Patient is not in any acute respiratory distress. HEAD AND FACE: No signs of trauma. No ecchymosis, hematomas or skull depressions. No sinus tenderness. EYES: PERRLA, EOMI x 2, No injected conjunctiva, no nystagmus. EARS: Hearing grossly intact. Ear canals and tympanic membranes are within normal limits. MOUTH: Oropharynx within normal limits. NECK: Supple, trachea is midline, no adenopathy, no JVD, no carotid bruit, no c- spine tenderness, neck with full ROM. CHEST: Symmetric, no tenderness at palpation LUNGS: Clear to auscultation bilaterally. No wheezing or crackles. CVS: Regular rate and rhythm, S1 and S2 present, no murmurs or gallops appreciated. ABDOMEN: Soft, non-tender. No signs of distention. No rebound no guarding, and no masses palpated. Bowel sounds are normal. EXTREMITIES: FROM in all major joints, no edema, no cyanosis or clubbing. NEURO: Alert and oriented x 3. No acute neurological deficits. Speech is normal and follows commands. SKIN: Dry and warm Triage Information Reviewed: Yes Vital Signs On Initial Exam: Initial Vitals Temp Pulse Resp BP Pulse Ox 98 F 90 16 166/110 99 10/23/17 12:39 10/23/17 12:39 10/23/17 12:39 10/23/17 12:39 10/23/17 12:39 Vital Signs Reviewed: Yes Diagnostics - Vital Signs Vital Signs Temp Pulse Resp BP Pulse Ox 10/23/17 12:39 98 F 90 16 166/110 99 - Laboratory Lab Results: Lab Results 10/23/17 10/23/17 10/23/17 Range/Units 13:25 13:25 13:25 WBC 10.4 (3.5-10.8) 10^3/ul RBC 4.21 (4.00-5.40) 10^6/ul Hgb 13.8 (12.0-16.0) g/dl Hct 39 (35-47) % MCV 93 (80-97) fL MCH 33 H (27-31) pg MCHC 35 (31-36) g/dl RDW 13 (10.5-15) % Plt Count 605 H D (150-450) 10^3/ul MPV 7.9 (7.4-10.4) um3 Neut % (Auto) 69.5 (38-83) % Lymph % (Auto) 22.0 L (25-47) % Liberty % (Auto) 6.8 (0-7) % Eos % (Auto) 1.3 (0-6) % Baso % (Auto) 0.4 (0-2) % Absolute Neuts (auto) 7.2 (1.5-7.7) 10^3/ul Absolute Lymphs (auto) 2.3 (1.0-4.8) 10^3/ul Absolute Monos (auto) 0.7 (0-0.8) 10^3/ul Absolute Eos (auto) 0.1 (0-0.6) 10^3/ul Absolute Basos (auto) 0 (0-0.2) 10^3/ul Absolute Nucleated RBC 0 10^3/ul Nucleated RBC % 0 Sodium 136 L (139-145) mmol/L Potassium 4.1 (3.5-5.0) mmol/L Chloride 103 (101-111) mmol/L Carbon Dioxide 24 (22-32) mmol/L Anion Gap 9 (2-11) mmol/L BUN 8 (6-24) mg/dL Creatinine 0.55 (0.51-0.95) mg/dL Est GFR ( Amer) 177.7 (>60) Est GFR (Non-Af Amer) 138.2 (>60) BUN/Creatinine Ratio 14.5 (8-20) Glucose 89 (70-100) mg/dL Calcium 9.4 (8.6-10.3) mg/dL Total Bilirubin 0.30 (0.2-1.0) mg/dL AST 20 (13-39) U/L ALT 28 (7-52) U/L Alkaline Phosphatase 155 H (34-104) U/L Total Protein 7.3 (6.4-8.9) g/dL Albumin 3.9 (3.2-5.2) g/dL Globulin 3.4 (2-4) g/dL Albumin/Globulin Ratio 1.1 (1-3) TSH 1.24 (0.34-5.60) mcIU/mL Urine Color Yellow Urine Appearance Cloudy Urine pH 7.0 (5-9) Ur Specific Continental 1.004 L (1.010-1.030) Urine Protein Negative (Negative) Urine Ketones Negative (Negative) Urine Blood 3+ A (Negative) Urine Nitrate Negative (Negative) Urine Bilirubin Negative (Negative) Urine Urobilinogen Negative (Negative) Ur Leukocyte Esterase 3+ A (Negative) Urine WBC (Auto) 3+(>20/hpf) A (Absent) Urine RBC (Auto) Trace(0-2/hpf) (Absent) Ur Squamous Epith Cells Present A (Absent) Urine Bacteria 1+ A (Absent) Urine Glucose Negative (Negative) Result Diagrams: 10/23/17 13:25 10/23/17 13:25 Lab Statement: Any lab studies that have been ordered have been reviewed, and results considered in the medical decision making process. - EKG 13:12 Cardiac Rate: NL EKG Rhythm: Sinus Rhythm - [address] Segment: Normal Ectopy: None EKG Interpretation: No ST elevations, normal axis Hypertension Course/Dx - Course Assessment/Plan: Blood tests without any significant abnormality. Urinalysis contaminated. Therefore we will send the urine for culture. EKG shows no acute elevations. In the ED course the patient was given labetalol 40 mg IV and the blood pressure has decreased to 130/74. Dr. Garcia from [facility] recommends the patient to be discharged home with nifedipine XL 30 mg. Patient remains stable she has no complaints. I discussed all the findings and test results with the patient. Patient was instructed to return to the emergency room immediately if any of the symptoms return or worsens. Plan of care was discussed with the patient and understands and agrees. All questions were answered at patient satisfaction. There were no further complaints or concerns. Lung exam before discharge: CTA B/L. Good air exchange. No wheezing or crackles heard. CVS: S1 and S2 present. No murmurs appreciated. Patient is alert and oriented x 3. Patient is hemodynamically stable. Patient will be discharged home with follow up PCP in the next 2-3 days - Diagnoses Differential Diagnosis/HQI PQRI: Hypertension, Hypertensive Crisis, Hypertensive Urgency Provider Diagnoses: Uncontrolled hypertension Discharge - Sign-Out/Discharge Documenting (check all that apply): Discharge/Admit/Transfer - Discharge - Discharge Plan Condition: Stable Disposition: HOME Prescriptions: NIFEdipine ER TAB* [Procardia Xl TAB*] 30 mg PO DAILY #15 tab.xl Patient Education Materials: Hypertension (ED) Referrals: Jori France MD [Primary Care Provider] - 3 Days Additional Instructions: Return to the ED for new or worsening symptoms. The documentation as recorded by the Juan rivas Stephanie accurately reflects the service I personally performed and the decisions made by Shant anderson Walter, MD.
[2017-10-23 16:40] VITALS: BP 117/87
== END 2017-10-23 16:43 | disposition home or self-care (01) ==
LOC: ED 12:30
DX: I10 Essential (primary) hypertension (principal); Z87.891 Personal history of nicotine dependence
CPT/HCPCS: 36415; 80053; 81003; 81015; 84443; 85025; 87086; 93005; 96365; 96366; 99284; A9270-GY

== ENCOUNTER 2018-01-19 11:27 | Emergency (ER) | payer BC, MEDICAID ==
[2018-01-19 12:57] LABS: ABS Basophils 0.1 10^3/ul (0-0.2); ABS Eosinophils 0 10^3/ul (0-0.6); ABS Lymphocytes 2.7 10^3/ul (1.0-4.8); ABS Monocytes 0.9 10^3/ul (0-0.8); ABS Neutrophils 12.1 10^3/ul (1.5-7.7); ABS Nucleated RBC 0 10^3/ul; Eosinophil % 0.1 % (0-6); Hematocrit 39 % (35-47); Hemoglobin 13.9 g/dl (12.0-16.0); Lymphocyte % 16.9 % (25-47); Mean Corpuscular HGB Conc 35 g/dl (31-36); Mean Corpuscular Hemoglobin 32 pg (27-31); Mean Corpuscular Volume 90 fL (80-97); Mean Platelet Volume 8.1 um3 (7.4-10.4); Nucleated Red Blood Cells % 0.1; Platelet Count 424 10^3/ul (150-450); Red Blood Count 4.37 10^6/ul (4.00-5.40); Red Cell Distribution Width 13 % (10.5-15); White Blood Count 15.9 10^3/ul (3.5-10.8)
[2018-01-19 13:15] LABS: EGFR Non-African American 109.1 (>60)
[2018-01-19] MEDS ORDERED: Al Hydrox/Mg Hydrox/Simet LIQ* 30 ML UDC PO ONE (13:53)
[2018-01-19] MEDS ORDERED: Lidocaine 2% VISCOUS* 15 ML UDC PO ONE (13:53)
[2018-01-19] MEDS ORDERED: hydrOXYzine HCL TAB* 25 MG PO ONE (13:54)
--- NOTE | 2018-01-19 13:55 | ED ---
Abdominal Pain/Female - HPI Summary HPI Summary: This patient is a 22 year old F presenting to ED with a chief complaint of epigastric pain since 1 week ago. The CC is described as intermittent. The patient rates the pain 0/10 in severity. Symptoms aggravated by twisting a certain way or physically lifting her daughter. Symptoms alleviated by nothing. Patient reports panic attacks (since yesterday, 3x a day) and palpitations during her panic attacks. She went to [facility] yesterday for a sore throat and showed negative for strep (has not resolved). The patient also has shoulder pain and is taking Tylenol for it. The patient was tachycardic upon arrival in the room. Patient denies N/V/D, SOB, fever, melena, dysuria, hematuria, and ear pain. The patient reports she got the depo shot at the end of November. She called PCP this morning who suggested she go into the ED to get checked out. - History of Current Complaint Chief Complaint: EDAbdPain Stated Complaint: CHEST PAIN/ANXIETY Time Seen by Provider: 01/19/18 13:40 Hx Obtained From: Patient Hx Last Menstrual Period: 08/23/16 Onset/Duration: Sudden Onset, Lasting Weeks, Still Present Timing: Intermittent Episode Lasting Severity Currently: None Pain Intensity: 0 Pain Scale Used: 0-10 Numeric Location: Epigastric Aggravating Factor(s): Movement - twisting a certain way or physically lifting her daughter Alleviating Factor(s): Nothing Associated Signs and Symptoms: Positive: Other: - Patient reports panic attacks (since yesterday, 3x a day) and palpitations during her panic attacks. She went to [facility] yesterday for a sore throat and showed negative for strep (has not resolved). The patient also has shoulder pain and is taking Tylenol for it. Patient denies N/V/D, SOB, fever, melena, dysuria, hematuria, and ear pain. Allergies/Adverse Reactions: Allergies Allergy/AdvReac Type Severity Reaction Status Date / Time NSAIDS (Non-Steroidal Allergy Swelling Verified 10/23/17 12:43 Anti-Inflamma Of Face,Lips,& Throat Home Medications: Home Medications Metformin HCl 500 mg PO BID 01/19/18 [History Confirmed 01/19/18] PMH/Surg Hx/FS Hx/Imm Hx Endocrine/Hematology History: Denies: Hx Diabetes, Hx Thyroid Disease Cardiovascular History: Denies: Hx Hypertension Respiratory History: Reports: Hx Asthma - albuterol mdi when needed Denies: Hx Chronic Obstructive Pulmonary Disease (COPD) GI History: Denies: Hx Ulcer History: Reports: Other Problems/Disorders - PCOS Sensory History: Denies: Hx Legally Blind, Hx Deafness Opthamlomology History: Denies: Hx Legally Blind - Surgical History Surgery Procedure, Year, and Place: T&A Infectious Disease History: No Infectious Disease History: Denies: Hx Clostridium Difficile, Hx Hepatitis, Hx Human Immunodeficiency Virus (HIV), Hx of Known/Suspected MRSA, Hx Shingles, Hx Tuberculosis, Hx Known/ Suspected VRE, Hx Known/Suspected VRSA, History Other Infectious Disease, Traveled Outside the [place] in Last 30 Days - Family History Known Family History: Positive: Diabetes, Other - CA - Social History Alcohol Use: None Hx Substance Use: No Substance Use Type: Reports: None Hx Tobacco Use: Yes Smoking Status (MU): Former Smoker Type: Cigarettes Amount Used/How Often: <1/2 PPD Length of Time of Smoking/Using Tobacco: 4 years Have You Smoked in the Last Year: Yes Review of Systems Negative: Fever, Chills Negative: Erythema Positive: Sore Throat. Negative: Ear Ache Positive: Palpitations - during her panic attacks, Other - tachycardic in the room. Negative: Chest Pain Negative: Shortness Of Breath, Cough Positive: Abdominal Pain - epigastric pain. Negative: Vomiting, Diarrhea, Nausea Negative: dysuria, hematuria Positive: Other - shoulder pain . Negative: Myalgia, Edema Negative: Rash Positive: Other - has panic attacks (since yesterday, 3x a day) All Other Systems Reviewed And Are Negative: Yes Physical Exam - Summary Physical Exam Summary: Constitutional: Well-developed, Well-nourished, Alert. (-) Distressed Skin: Warm, Dry HENT: Normocephalic; Atraumatic Eyes: Conjunctiva normal Neck: Musculoskeletal ROM normal neck. (-) JVD, (-) Stridor, (-) Tracheal deviation Cardio: Rhythm regular, rate normal, Heart sounds normal; Intact distal pulses; The pedal pulses are 2+ and symmetric. Radial pulses are 2+ and symmetric. (-) Murmur Pulmonary/Chest wall: Effort normal. (-) Respiratory distress, (-) Wheezes, (-) Rales Abd: Soft, (-) Distension, (-) Guarding, (-) Rebound. Patient reports she has epigastric pain but doesnt appear to be tender. Musculoskeletal: (-) Edema Lymph: (-) Cervical adenopathy Neuro: Alert, Oriented x3 Psych: Mood and affect Normal Triage Information Reviewed: Yes Vital Signs On Initial Exam: Initial Vitals Temp Pulse Resp BP Pulse Ox 97.9 F 135 18 146/93 99 01/19/18 11:36 01/19/18 11:36 01/19/18 11:36 01/19/18 11:36 01/19/18 11:36 Vital Signs Reviewed: Yes Diagnostics - Vital Signs Vital Signs Temp Pulse Resp BP Pulse Ox 01/19/18 13:31 109 151/89 98 01/19/18 11:36 97.9 F 135 18 146/93 99 - Laboratory Lab Results: Lab Results 01/19/18 01/19/18 01/19/18 Range/Units 12:50 12:50 12:50 WBC 15.9 H (3.5-10.8) 10^3/ul RBC 4.37 (4.00-5.40) 10^6/ul Hgb 13.9 (12.0-16.0) g/dl Hct 39 (35-47) % MCV 90 (80-97) fL MCH 32 H (27-31) pg MCHC 35 (31-36) g/dl RDW 13 (10.5-15) % Plt Count 424 (150-450) 10^3/ul MPV 8.1 (7.4-10.4) um3 Neut % (Auto) 76.5 (38-83) % Lymph % (Auto) 16.9 L (25-47) % Moffat % (Auto) 5.9 (0-7) % Eos % (Auto) 0.1 (0-6) % Baso % (Auto) 0.6 (0-2) % Absolute Neuts (auto) 12.1 H (1.5-7.7) 10^3/ul Absolute Lymphs (auto) 2.7 (1.0-4.8) 10^3/ul Absolute Monos (auto) 0.9 H (0-0.8) 10^3/ul Absolute Eos (auto) 0 (0-0.6) 10^3/ul Absolute Basos (auto) 0.1 (0-0.2) 10^3/ul Absolute Nucleated RBC 0 10^3/ul Nucleated RBC % 0.1 Sodium 137 (135-145) mmol/L Potassium 3.5 (3.5-5.0) mmol/L Chloride 107 (101-111) mmol/L Carbon Dioxide 21 L (22-32) mmol/L Anion Gap 9 (2-11) mmol/L BUN 7 (6-24) mg/dL Creatinine 0.67 (0.51-0.95) mg/dL Est GFR ( Amer) 132.0 (>60) Est GFR (Non-Af Amer) 109.1 (>60) BUN/Creatinine Ratio 10.4 (8-20) Glucose 118 H (70-100) mg/dL Lactic Acid 1.5 (0.5-2.0) mmol/L Calcium 9.6 (8.6-10.3) mg/dL Total Bilirubin 0.30 (0.2-1.0) mg/dL AST 18 (13-39) U/L ALT 30 (7-52) U/L Alkaline Phosphatase 96 (34-104) U/L Troponin I 0.00 (<0.04) ng/mL Total Protein 7.9 (6.4-8.9) g/dL Albumin 4.7 (3.2-5.2) g/dL Globulin 3.2 (2-4) g/dL Albumin/Globulin Ratio 1.5 (1-3) Result Diagrams: 01/19/18 12:50 01/19/18 12:50 Lab Statement: Any lab studies that have been ordered have been reviewed, and results considered in the medical decision making process. - Ultrasound No standard instances Ultrasound Interpretation Completed By: Radiologist - Gallbladder US reveals mild hepatomegaly and evidence for hepatosteatosis. Negative for gallbladder pathology. ED physician has reviewed this radiology report. - EKG 1201 Cardiac Rate: Tachycardia - 121 BPM EKG Rhythm: Sinus Tachycardia EKG Interpretation: No STEMI, suspect that tachycardia is secondary to anxiety Re-Evaluation - Re-Evaluation First Eval Re-Evaluation Time: 15:14 Change: Improved Comment: The patient is feeling better. She does not want to stay for the UA. Patient will be discharged. Abdominal Pain Fem Course/Dx - Course Course Of Treatment: This patient is a 22 year old F presenting to ED with a chief complaint of epigastric pain since 1 week ago. PE is ruled out with negative D-Dimer. The patient admits that she does a lot of twisting and lifting because of her baby. Her pain is reproducible; it could be intercostal strain. Gallbladder US is negative. She has chronically elevated WBC which she was instructed to follow up closely with her PCP. She has an appointment with her PCP tomorrow. She does not want to stay for her UA. She will be discharged with dx of leukocytosis, pharyngitis, rib pain, and panic attack. Patient is agreeable with this plan. - Diagnoses Provider Diagnoses: Leukocytosis, Rib pain, Pharyngitis, Panic attack Discharge - Sign-Out/Discharge Documenting (check all that apply): Patient Departure - D/C - Discharge Plan Condition: Stable Disposition: HOME Prescriptions: hydrOXYzine HCL TAB* [Atarax 25 MG TAB*] 25 mg PO TID PRN #30 tab PRN Reason: Agitation/Anxiety Patient Education Materials: Pharyngitis (ED), Leukocytosis (ED), Panic Attack (ED) Referrals: Jori France MD [Primary Care Provider] - (Follow up at your appointment tomorrow.) Additional Instructions: Follow up tomorrow with your primary care physician. Follow up about your chronically elevated WBC. RETURN TO THE EMERGENCY DEPARTMENT FOR CHANGING OR WORSENING SYMPTOMS - Attestation Statements Document Initiated by Scribe: Yes Documenting Scribe: Deven Andres Provider For Whom Scribe is Documenting (Include Credential): Cr Christina MD Scribe Attestation: Deven Howard, scribed for Cr Christina MD on 01/19/18 at 1558.
--- NOTE | 2018-01-19 14:47 | RAD ---
Indication: Epigastric pain. Elevated white blood cell count. Comparison: November 28, 2016 ultrasound Technique: RIGHT upper quadrant ultrasound. Report: Appropriate direction flow documented in the portal and hepatic veins. 19.4 cm liver is increased in echogenicity. Negative for focal hepatic lesions. Negative for intrahepatic biliary dilatation. 3.3 mm common bile duct. Adequately distended gallbladder with normal 2.7 mm wall is without pathologic finding. Negative for sonographic Pérez's sign. The pancreas is poorly visualized with the tail almost entirely obscured due to bowel gas. No gross abnormality of the limited visualized pancreas. Negative for ascites. 12.6 x 6.1 x 6.3 cm RIGHT kidney is unremarkable. IMPRESSION: #. Mild hepatomegaly and evidence for hepatosteatosis. #. Negative for gallbladder pathology.
[2018-01-19] MEDS ORDERED: Ketorolac INJ* 30 MG/ML 1 ML VIAL IV PUSH ONE (15:16)
[2018-01-19] MEDS ORDERED: Acetaminophen TAB* 325 MG PO ONE (15:17)
[2018-01-19 15:42] VITALS: BP 130/73
[2018-01-19 16:14] LABS: Urine Appearance Cloudy; Urine Blood 1+ (Negative); Urine Color Yellow; Urine Ketones Negative (Negative); Urine Protein Negative (Negative); Urine Red Blood Cell Trace(0-2/hpf) (Absent); Urine Specific Gravity 1.012 (1.010-1.030); Urine Urobilinogen Negative (Negative); Urine White Blood Cell 2+(11-20/hpf) (Absent)
== END 2018-01-19 15:41 | disposition home or self-care (01) ==
LOC: ED 11:27
DX: D72.829 Elevated white blood cell count, unspecified (principal); R07.81 Pleurodynia; F41.0 Panic disorder [episodic paroxysmal anxiety]; J02.9 Acute pharyngitis, unspecified; R10.13 Epigastric pain; M25.519 Pain in unspecified shoulder; Z87.891 Personal history of nicotine dependence
CPT/HCPCS: 36415; 76705; 80053; 81003; 81015; 83605; 84439; 84443; 84484; 84702; 85025; 85379; 87086; 93005; 96374; 99283; A9270-GY

== ENCOUNTER 2023-12-09 09:06 | Inpatient (IN) ==
[2023-12-09] MEDS ORDERED: Lidocaine 1% VIAL 10 MG/ML 30 ML VIAL INJ PRN (10:29)
[2023-12-09] MEDS: Lactated Ringers 1000 ml BAG 1,000 ML IV ONE (12:16)
[2023-12-09 12:17] LABS: ABS Eosinophils 0.2 10^3/uL (0.0-0.5); ABS Monocytes 0.5 10^3/uL (0.0-0.9); ABS Neutrophils 6.4 10^3/uL (1.5-7.6); ABS Nucleated RBC 0.01 10^3/ul; Hematocrit 34.3 % (35-45); Lymphocyte % 21.9 %; Mean Corpuscular Hemoglobin 32.3 pg (27-33); Mean Corpuscular Hgb Conc 34.9 g/dL (31-36); Mean Corpuscular Volume 92.5 fL (80-97); Mean Platelet Volume 8.3 fL (7.5-11.2); Nucleated Red Blood Cells % 0.1 %/100WBC (0.0-0.8); Platelet Count 289 10^3/uL (150-450); Red Blood Count 3.71 10^6/uL (3.63-4.92); Red Cell Distribution Width 13.2 % (12-17)
[2023-12-09] MEDS: miSOPROStol 100 mcg TAB ONE ×2 (12:18→18:54)
[2023-12-09 12:37] LABS: Albumin 3.2 g/dL (3.2-5.2); Albumin/Globulin Ratio 1.3 (1-3); Calcium 8.6 mg/dL (8.6-10.3); Creatinine, Serum 0.4 mg/dL (0.51-0.95); Globulin 2.5 g/dL (2-4); Potassium 3.4 mmol/L (3.5-5.0); Total Bilirubin 0.5 mg/dL (0.2-1.0); Total Protein 5.7 g/dL (6.4-8.9); Uric Acid 6.2 mg/dL (2.3-6.6); eGFR CKD-EPI 138.2 (>60)
[2023-12-09 12:40] LABS: Urine Benzodiazepine Screen None Detected (None Detect); Urine Cannabinoids Screen None Detected (None Detect); Urine Opiates Screen None Detected (None Detect)
[2023-12-09] MEDS: Calcium Carb (TUMS) 500 mg CHEW TAB PO PRN (13:35)
[2023-12-09] MEDS: Buffered Lidocaine 1% SYRIN 1 ml INTRADERM ONE (13:49)
[2023-12-09] MEDS: Famotidine IV 10 MG/ML 2 ml VIAL (20 mg) IV SLOW PU PRN (15:34)
[2023-12-09] MEDS: Dinoprostone 10 MG VAG.SUPP VAGINAL ONE (23:53)
[2023-12-10] MEDS ORDERED: Ondansetron 4 mg VIAL 2 MG/ML 2 ml VIAL ONE (08:30)
[2023-12-10] MEDS ORDERED: Dexamethasone IV 4 MG/ML VIAL 1 ml VIAL ONE (08:30)
[2023-12-10] MEDS ORDERED: Sodium Citrate/Citric Acid LIQ 15 ML UDC ONE (08:32)
[2023-12-10] MEDS ORDERED: Oxytocin 10 UNITS/ML 1 ML VIAL ONE ×3 (08:33→08:34)
[2023-12-10] MEDS ORDERED: Morphine PF AMP (0.5MG/ML) 5 MG/10 ML AMP ONE (08:36)
[2023-12-10] MEDS: miSOPROStol 100 mcg TAB PO ONE ×2 (15:11→19:33)
[2023-12-10 15:45] LABS: Hematocrit 34.9 % (35-45); Hemoglobin 11.8 g/dL (11.5-14.3); Mean Corpuscular Hemoglobin 31.6 pg (27-33); Mean Corpuscular Hgb Conc 33.8 g/dL (31-36); Mean Corpuscular Volume 93.5 fL (80-97); Mean Platelet Volume 8.7 fL (7.5-11.2); Platelet Count 297 10^3/uL (150-450); Red Blood Count 3.73 10^6/uL (3.63-4.92); Red Cell Distribution Width 13.2 % (12-17); White Blood Count 11.2 10^3/uL (3.8-11.8)
[2023-12-10 15:58] LABS: Albumin 3.2 g/dL (3.2-5.2); Albumin/Globulin Ratio 1.1 (1-3); Calcium 8.8 mg/dL (8.6-10.3); Creatinine, Serum 0.49 mg/dL (0.51-0.95); Potassium 3.6 mmol/L (3.5-5.0); Total Bilirubin 0.5 mg/dL (0.2-1.0); Total Protein 6.2 g/dL (6.4-8.9); eGFR CKD-EPI 131.6 (>60)
[2023-12-10] MEDS: cefTRIAXone 1 gm/50 mL D5W 1 GM/50 ML BAG IV ONE (17:22)
[2023-12-10] MEDS: Mometasone/Formoter 100/5 MDI INH SCH (17:25)
[2023-12-11] MEDS: Prochlorperazine 5 mg/ml 2 ml VIAL (10 mg) IV PRN (00:33)
[2023-12-11] MEDS: miSOPROStol 100 mcg TAB VAGINAL ONE (00:43)
[2023-12-11] MEDS: miSOPROStol 100 mcg TAB PO ONE (05:14)
[2023-12-11] MEDS ORDERED: Calcium Gluconate 1 GM/10 ML VIAL (in Pyxis) IV PUSH PRN (08:33)
[2023-12-11 08:49] LABS: Hematocrit 35.6 % (35-45); Hemoglobin 12.3 g/dL (11.5-14.3); Mean Corpuscular Hemoglobin 32.1 pg (27-33); Mean Corpuscular Hgb Conc 34.6 g/dL (31-36); Mean Corpuscular Volume 92.9 fL (80-97); Mean Platelet Volume 8.8 fL (7.5-11.2); Platelet Count 327 10^3/uL (150-450); Red Blood Count 3.83 10^6/uL (3.63-4.92); White Blood Count 15.4 10^3/uL (3.8-11.8)
[2023-12-11] MEDS: Lactated Ringers 1000 ml BAG 1,000 ML IV SCH (08:59)
[2023-12-11] MEDS: Magnesium Sulfate OB PREMIX 4 GM/100 ML BAG IV ONE (09:04)
[2023-12-11 09:08] LABS: Albumin 3.3 g/dL (3.2-5.2); Albumin/Globulin Ratio 1.2 (1-3); Calcium 8.5 mg/dL (8.6-10.3); Creatinine, Serum 0.48 mg/dL (0.51-0.95); Globulin 2.7 g/dL (2-4); Potassium 4.1 mmol/L (3.5-5.0); Total Bilirubin 0.6 mg/dL (0.2-1.0); Uric Acid 4.4 mg/dL (2.3-6.6); eGFR CKD-EPI 132.2 (>60)
[2023-12-11] MEDS: Magnesium Sulfate OB PREMIX 40 GM/1,000 ML BAG IVPB SCH (09:31)
[2023-12-11] MEDS: Acetaminophen IV 1 GM/100ML 1,000 MG/100 ML BAG IV ONE (10:58)
[2023-12-11] MEDS ORDERED: Ondansetron 4 mg VIAL 2 MG/ML 2 ml VIAL ONE (12:14)
[2023-12-11] MEDS ORDERED: Morphine PF AMP (0.5MG/ML) 5 MG/10 ML AMP ONE (12:14)
[2023-12-11] MEDS ORDERED: Oxytocin 10 UNITS/ML 1 ML VIAL ONE (12:14)
[2023-12-11] MEDS ORDERED: Phenylephrine IV 10 MG/ML 1 ml VIAL ONE (12:16)
[2023-12-11] MEDS ORDERED: Metoclopramide 5 MG/ML VIAL (10 mg) IV PRN (15:09)
[2023-12-11] MEDS ORDERED: Ondansetron 4 mg VIAL 2 MG/ML 2 ml VIAL IV PRN (15:09)
[2023-12-11] MEDS ORDERED: Naloxone 0.4 mg VIAL 0.4 mg/ml 1 ml VIAL IV PUSH PRN (15:09)
[2023-12-11] MEDS ORDERED: Acetaminophen IV 1 GM/100ML 1,000 MG/100 ML BAG IV PRN (15:09)
[2023-12-11 16:00] LABS: Urine Appearance Clear; Urine Bilirubin Negative (Negative); Urine Blood Negative (Negative); Urine Color Light-Yellow; Urine Glucose Negative (Negative); Urine Ketones 2+ (Negative); Urine Nitrite Negative (Negative); Urine Protein Negative (Negative); Urine Specific Gravity 1.008 (1.002-1.030); Urine Urobilinogen Negative (Negative)
[2023-12-11] MEDS: fentaNYL 100 mcg/2 ml 50 MCG/ML VIAL IV PRN (16:23)
[2023-12-11] MEDS ORDERED: Witch Hazel PAD JAR TOPICAL PRN (18:02)
[2023-12-11] MEDS ORDERED: Glycerin ADULT 2.4 gm SUPP PR PRN (18:02)
[2023-12-11] MEDS: Albuterol HFA INHALER 8 gm MDI INH PRN (18:16)
[2023-12-11] MEDS: Oxytocin in LR 20,000 MILLI.UNIT/1,000 ML BAG IV SCH (18:30)
[2023-12-11] MEDS ORDERED: Lactated Ringers 1000 ml BAG 1,000 ML IV SCH (19:00)
[2023-12-11] MEDS: ceFAZolin 2 GM in NS PREMIX 2 GM/100 ML BAG IVPB ONE (19:27)
[2023-12-12 07:02] LABS: ABS Eosinophils 0.2 10^3/uL (0.0-0.5); ABS Lymphocytes 1.5 10^3/uL (1.0-4.8); ABS Neutrophils 9.9 10^3/uL (1.5-7.6); Eosinophil % 1.3 %; Hematocrit 29.9 % (35-45); Hemoglobin 10.7 g/dL (11.5-14.3); Lymphocyte % 11.7 %; Mean Corpuscular Hemoglobin 33.3 pg (27-33); Mean Corpuscular Hgb Conc 35.8 g/dL (31-36); Mean Corpuscular Volume 93.1 fL (80-97); Mean Platelet Volume 8.2 fL (7.5-11.2); Platelet Count 334 10^3/uL (150-450); Red Blood Count 3.22 10^6/uL (3.63-4.92); Red Cell Distribution Width 13.3 % (12-17); White Blood Count 12.6 10^3/uL (3.8-11.8)
[2023-12-13 10:10] LABS: Albumin 2.9 g/dL (3.2-5.2); Albumin/Globulin Ratio 1.2 (1-3); Calcium 8.1 mg/dL (8.6-10.3); Creatinine, Serum 0.43 mg/dL (0.51-0.95); Globulin 2.5 g/dL (2-4); Potassium 4.5 mmol/L (3.5-5.0); Total Bilirubin 0.3 mg/dL (0.2-1.0); Total Protein 5.4 g/dL (6.4-8.9); eGFR CKD-EPI 135.8 (>60)
[2023-12-14 09:26] LABS: Albumin 3.1 g/dL (3.2-5.2); Creatinine, Serum 0.42 mg/dL (0.51-0.95); Potassium 4.8 mmol/L (3.5-5.0); Total Bilirubin 0.3 mg/dL (0.2-1.0); Total Protein 6.1 g/dL (6.4-8.9); eGFR CKD-EPI 136.6 (>60)
[2023-12-14 15:07] VITALS: BP 156/94
== END 2023-12-14 17:40 | disposition home or self-care (01) | DRG 540 ==
LOC: MCHOBOUT 09:06 → MCHOB 11:00
PROVIDERS: ATTEND Obstetrics & Gynecology